=== PATIENT | female | born 1970 | race African-American/Black ===

== ENCOUNTER 2017-01-09 12:35 | Emergency (ER) | payer BC ==
[~2017-01-09] VITALS: Ht 162.6 cm; Wt 99.8 kg
[~2017-01-09 12:35] MED LIST: ASPI-482 PO; ASPI1TAB2 PO; BIOT25005 PO; DOCU-27 PO; FERR-26 PO; GLIP5TAB10 PO; IBUP-1060 PO; LISI1TAB5 PO; LOVA20TA2 PO; METF10002 PO; OXYC-323 PO
[2017-01-09] MEDS ORDERED: IV NORMAL SALINE 1000ML BAG 1,000 ML IV ONE (13:45)
[2017-01-09] MEDS ORDERED: ONDANSETRON PF 4 MG/2 ML VIAL. IV ONE (13:45)
[2017-01-09 14:20] LABS: BARBITURATES NEG (NEG); BENZODIAZEPINES NEG (NEG); CANNABINOIDS NEG (NEG); COCAINE NEG (NEG); METHADONE NEG (NEG); OPIATES NEG (NEG); PHENCYCLIDINE NEG (NEG)
[2017-01-09 14:21] VITALS: BP 117/68
[2017-01-09 14:21] LABS: ETHANOL, URINE NEG (NEG)
--- NOTE | 2017-01-09 14:25 | PHYS DOC ---
Past Medical History Past Medical History: Diabetes-Type II, High Cholesterol, Hypertension Past Surgical History: , Tonsillectomy, Tubal ligation Alcohol Use: None Drug Use: None Adult General Chief Complaint Chief Complaint: HYPERGLYCEMIA HPI HPI 46-year-old female with type 2 diabetes presents with a several day history of nausea vomiting and low-grade fever body aches chills and generalized fatigue. Today she states she's noted that her blood sugar is been markedly elevated at close to 500. She took her Glucophage and glipizide this morning as directed however she vomited shortly after does not think any of her medication was absorbed.] Review of Systems Review of Systems Constitutional: Reports subjective fever and chills [] Eyes: Denies change in visual acuity, redness, or eye pain [] HENT: Denies nasal congestion or sore throat [] Respiratory: Denies cough or shortness of breath [] Cardiovascular: No additional information not addressed in HPI [] GI: Per history of present illness [] : Denies dysuria or hematuria [] Musculoskeletal: Denies back pain or joint pain [] Integument: Denies rash or skin lesions [] Neurologic: Denies headache, focal weakness or sensory changes [] Endocrine: Denies polyuria or polydipsia [] Current Medications Current Medications Current Medications Medications (Trade) Dose Ordered Sig/Iker Start Time Stop Time Status Last Admin Dose Admin Ondansetron HCl (Zofran) 4 mg 1X ONCE 01/09/17 13:45 01/09/17 13:46 DC 01/09/17 14:46 4 MG Sodium Chloride (Iv Sodium Chloride 0.9% 1000ml Bag) 1,000 ml @ 1,000 mls/hr 1X ONCE 01/09/17 13:45 01/09/17 14:44 DC 01/09/17 14:45 1,000 MLS/HR Allergies Allergies Allergies Coded Allergies Type Severity Reaction Last Updated Verified No Known Drug Allergies 09/17/16 No Physical Exam Physical Exam Constitutional: Well developed, well nourished, no acute distress, non-toxic appearance. [] HENT: Normocephalic, atraumatic, bilateral external ears normal, oropharynx moist, no oral exudates, nose normal. [] Eyes: PERRLA, EOMI, conjunctiva normal, no discharge. [] Neck: Normal range of motion, no tenderness, supple, no stridor. [] Cardiovascular:Heart rate regular rhythm, no murmur [] Lungs & Thorax: Bilateral breath sounds clear to auscultation [] Abdomen: Bowel sounds normal, soft, no tenderness, no masses, no pulsatile masses. [] Skin: Warm, dry, no erythema, no rash. [] Back: No tenderness, no CVA tenderness. [] Extremities: No tenderness, no cyanosis, no clubbing, ROM intact, no edema. [] Neurologic: Alert and oriented X 3, normal motor function, normal sensory function, no focal deficits noted. [] Psychologic: Affect normal, judgement normal, mood normal. [] Current Patient Data Vital Signs Vital Signs Date Time Temp Pulse Resp B/P Pulse Ox O2 Delivery O2 Flow Rate FiO2 01/09/17 13:21 98.4 91 17 131/78 97 Room Air 98.4 Lab Values Laboratory Tests Test 01/09/17 13:05 01/09/17 13:20 01/09/17 13:35 01/09/17 14:00 Urine Opiates Screen Neg (NEG) Urine Methadone Screen Neg (NEG) Urine Barbiturates Neg (NEG) Urine Phencyclidine Screen Neg (NEG) Urine Amphetamine/Methamphetamine Neg (NEG) Urine Benzodiazepines Screen Neg (NEG) Urine Cocaine Screen Neg (NEG) Urine Cannabinoids Screen Neg (NEG) Urine Ethyl Alcohol Neg (NEG) Glucose (Fingerstick) 323mg/dL (70-99) H POC Urine HCG, Qualitative Hcg negative (Negative) Influenza Type A Antigen Negative (NEGATIVE) Influenza Type B Antigen Negative (NEGATIVE) Test 01/09/17 14:30 White Blood Count 8.5x10^3/uL (4.0-11.0) Red Blood Count 5.01x10^6/uL (3.50-5.40) Hemoglobin 11.5g/dL (12.0-15.5) L Hematocrit 37.2% (36.0-47.0) Mean Corpuscular Volume 74fL (79-100) L Mean Corpuscular Hemoglobin 23pg (25-35) L Mean Corpuscular Hemoglobin Concent 31g/dL (31-37) Red Cell Distribution Width 18.2% (11.5-14.5) H Platelet Count 296x10^3/uL (140-400) Neutrophils (%) (Auto) 62% (31-73) Lymphocytes (%) (Auto) 30% (24-48) Monocytes (%) (Auto) 6% (0-9) Eosinophils (%) (Auto) 1% (0-3) Basophils (%) (Auto) 0% (0-3) Neutrophils # (Auto) 5.3x10^3uL (1.8-7.7) Lymphocytes # (Auto) 2.6x10^3/uL (1.0-4.8) Monocytes # (Auto) 0.5x10^3/uL (0.0-1.1) Eosinophils # (Auto) 0.1x10^3/uL (0.0-0.7) Basophils # (Auto) 0.0x10^3/uL (0.0-0.2) Sodium Level 135mmol/L (136-145) L Potassium Level 4.5mmol/L (3.5-5.1) Chloride Level 97mmol/L (98-107) L Carbon Dioxide Level 31mmol/L (21-32) Anion Gap 7 (6-14) Blood Urea Nitrogen 10mg/dL (7-20) Creatinine 0.9mg/dL (0.6-1.0) Estimated GFR (Cockcroft-Gault) 82.3 BUN/Creatinine Ratio 11 (6-20) Glucose Level 276mg/dL (70-99) H Calcium Level 9.5mg/dL (8.5-10.1) Total Bilirubin 0.2mg/dL (0.2-1.0) Aspartate Amino Transferase (AST) 69U/L (15-37) H Alanine Aminotransferase (ALT) 94U/L (14-59) H Alkaline Phosphatase 82U/L (46-116) Total Protein 8.0g/dL (6.4-8.2) Albumin 3.2g/dL (3.4-5.0) L Albumin/Globulin Ratio 0.7 (1.0-1.7) L Lipase 146U/L (73-393) Laboratory Tests 01/09/17 14:30 Laboratory Tests 01/09/17 14:30 EKG EKG [] Radiology/Procedures Radiology/Procedures [] Course & Med Decision Making Course & Med Decision Making Pertinent Labs and Imaging studies reviewed. (See chart for details) [ED course: Evaluation reveals a 46-year-old female with multiple medical problems presents with nausea and elevated blood sugar. She was not ketotic her blood sugar was 276 she was given IV fluids and Zofran for her nausea which did help alleviate her symptoms. She'll be discharged home with prescription for Zofran.] Dragon Disclaimer Dragon Disclaimer This electronic medical record was generated, in whole or in part, using a voice recognition dictation system. Departure Departure Impression: Primary Impression: Nausea Additional Impression: Hyperglycemia Disposition: HOME, SELF-CARE Condition: IMPROVED Referrals: NO PCP (PCP) Patient Instructions: Hyperglycemia, Nausea and Vomiting Additional Instructions: Thank you for allowing us to participate in your care today. Followup with your primary care physician in 3 days if your symptoms do not improve. Return to the emergency department you have any new or concerning findings. This should be evaluated by the primary care physician and any necessary consulting services for continued management within a few days after discharge. Return to emergency room if you have any new or concerning symptoms including but not limited to fever, chills, nausea, vomiting, intractable pain, any new rashes, chest pain, shortness of air, uncontrolled bleeding, difficulty breathing, and/or vision loss. You may have been prescribed medication that can change in your level of thinking and ability to operate machinery. These medications include hydrocodone and Ativan. Also, Benadryl has been known to do this as well. Be sure to check with your pharmacist and ask if the medications you've prescribed can affect your level of consciousness. I recommend not operating heavy machinery or driving while on medication such as these. Scripts Ondansetron Hcl (Zofran)4 Mg Tablet1 Tab PO Q8HRS PRN NAUSEA #20 TAB Prov:ROZ QUINTANA DO 01/09/17 Problem Qualifiers ROZ QUINTANA DO Jan 09, 2017 14:24
[2017-01-09 14:51] LABS: OBC FLU VALID
[2017-01-09 14:53] LABS: BASO % 0 % (0-3); EOS % 1 % (0-3); HEMATOCRIT 37.2 % (36.0-47.0); HEMOGLOBIN 11.5 g/dL (12.0-15.5); LYMPH # 2.6 x10^3/uL (1.0-4.8); LYMPH % 30 % (24-48); MEAN CORPUSCULAR HEMOGLOBIN 23 pg (25-35); MEAN CORPUSCULAR HGB CONC 31 g/dL (31-37); MEAN CORPUSCULAR VOLUME 74 fL (79-100); MONO % 6 % (0-9); NEUT % 62 % (31-73); PLATELET COUNT 296 x10^3/uL (140-400); RED BLOOD COUNT 5.01 x10^6/uL (3.50-5.40); RED CELL DISTRIBUTION WIDTH 18.2 % (11.5-14.5); WHITE BLOOD COUNT 8.5 x10^3/uL (4.0-11.0)
[2017-01-09 15:06] LABS: CALCIUM 9.5 mg/dL (8.5-10.1); CREATININE 0.9 mg/dL (0.6-1.0); GFR 82.3; POTASSIUM 4.5 mmol/L (3.5-5.1)
[2017-01-09 15:12] LABS: ALBUMIN 3.2 g/dL (3.4-5.0); ALBUMIN/GLOBULIN RATIO 0.7 (1.0-1.7); TOTAL BILIRUBIN 0.2 mg/dL (0.2-1.0)
[2017-01-09] MEDS ORDERED: ONDA4TAB7 PO (15:42)
== END 2017-01-09 15:58 | disposition home or self-care (01) ==
LOC: ER 12:35
DX: E11.65 Type 2 diabetes mellitus with hyperglycemia (principal); R11.2 Nausea with vomiting, unspecified; I10 Essential (primary) hypertension; E78.00 Pure hypercholesterolemia, unspecified; R50.9 Fever, unspecified; R53.83 Other fatigue; Z98.51 Tubal ligation status
CPT/HCPCS: 36415; 80053; 81025; 82947; 83690; 85027; 87804; 96361; 96374; 99284; G0481; J2405; J7030

== ENCOUNTER 2017-03-29 16:10 | Emergency (ER) | payer BC ==
[~2017-03-29] VITALS: Ht 162.6 cm; Wt 99.8 kg
[~2017-03-29 16:10] MED LIST changes: +METF-620 PO; -METF10002 PO; +ONDA4TAB7 PO
[2017-03-29 16:46] VITALS: BP 108/70
[2017-03-29] MEDS ORDERED: TRAM-29 PO (17:08)
[2017-03-29] MEDS ORDERED: CYCL10TA2 PO (17:08)
--- NOTE | 2017-03-29 17:09 | PHYS DOC ---
Past Medical History Past Medical History: Diabetes-Type II, High Cholesterol, Hypertension Additional Past Medical Histor: lumbar radiculopathy Past Surgical History: , Hysterectomy, Tonsillectomy, Tubal ligation Alcohol Use: None Drug Use: None Adult General Chief Complaint Chief Complaint: LOWER BACK PAIN OR INJURY [facility] HPI Patient is a 47 year old female presents to the emergency department with a history of right lower back pain since yesterday. Patient states she has a history of back pain in the past. She states her back has spasms. Denies numbness, tingling to the lower extremities. She denies trauma or injury to the back. Patient states she has been taking Tylenol without relief. Review of Systems Review of Systems Constitutional: Denies fever or chills [] Eyes: Denies change in visual acuity, redness, or eye pain [] HENT: Denies nasal congestion or sore throat [] Respiratory: Denies cough or shortness of breath [] Cardiovascular: No additional information not addressed in HPI [] GI: Denies abdominal pain, nausea, vomiting, bloody stools or diarrhea [] : Denies dysuria or hematuria [] Musculoskeletal: right lower back pain denies joint pain [] Integument: Denies rash or skin lesions [] Neurologic: Denies headache, focal weakness or sensory changes [] Allergies Allergies Allergies Coded Allergies Type Severity Reaction Last Updated Verified No Known Drug Allergies 09/17/16 No Physical Exam Physical Exam Constitutional: Well developed, well nourished, no acute distress, non-toxic appearance. [] HENT: Normocephalic, atraumatic, bilateral external ears normal, oropharynx moist, no oral exudates, nose normal. [] Eyes: PERRLA, EOMI, conjunctiva normal, no discharge. [] Neck: Normal range of motion, no tenderness, supple, no stridor. [] Cardiovascular:Heart rate regular rhythm, no murmur [] Lungs & Thorax: Bilateral breath sounds clear to auscultation [] Skin: Warm, dry, no erythema, no rash. [] Back: Right lower back tenderness, increase pain noted with right leg raises. Extremities: No tenderness, no cyanosis, no clubbing, ROM intact, no edema. Peripheral pulses 2+ cap refill brisk less than 2 seconds. Patient with good sensation noted to the lower extremities. Neurologic: Alert and oriented X 3, normal motor function, normal sensory function, no focal deficits noted. [] Psychologic: Affect normal, judgement normal, mood normal. [] Current Patient Data Vital Signs Vital Signs Date Time Temp Pulse Resp B/P Pulse Ox O2 Delivery O2 Flow Rate FiO2 03/29/17 16:46 98.1 83 16 100 Room Air 98.1 EKG EKG [] Radiology/Procedures Radiology/Procedures [] Course & Med Decision Making Course & Med Decision Making Pertinent Labs and Imaging studies reviewed. (See chart for details) Patient will be provided with Flexeril for muscle spasms. She was instructed that these medications will cause drowsiness do not take any be alert and oriented. She'll also be provided with tramadol for severe pain and discomfort She was instructed this may cause drowsiness as well. She was encouraged to use ibuprofen 800 mg every 8 hours with food stop taking few develop an upset stomach. She'll be provided with a physician to follow up within the next 5-7 days. Signs and symptoms to return back to the emergency department as been provided. Patient agrees with discharge instructions treatment regimens and follow-up recommendations. [] Dragon Disclaimer Dragon Disclaimer This electronic medical record was generated, in whole or in part, using a voice recognition dictation system. Departure Departure Impression: Primary Impression: Back pain Disposition: 01 HOME, SELF-CARE Condition: STABLE Referrals: UNKNOWN PCP NAME (PCP) KOURTNEY SIMON MD Patient Instructions: Back Pain, Adult, [id number] Additional Instructions: Activity as tolerated. Ibuprofen 800 mg every 8 hours with food. Stop taking few develop an upset stomach. Flexeril for muscle spasms this medication will cause drowsiness do not take any be alert and oriented. Tramadol for severe pain and discomfort.Medication will also cause drowsiness don't take any be alert and oriented. Ice packs on 20 minutes off 20 minutes several times a day. Follow-up with the physician provided for you in the next 5-7 days. Return to emergency department for signs and symptoms of become worse. Scripts Tramadol Hcl (Ultram)50 Mg Tablet1 Tab PO Q6HRS #15 TAB Prov:KRISTEL LANZA APRN 03/29/17 Cyclobenzaprine Hcl 10 Mg [id number] Mg PO TID PRN MUSCLE SPASMS #30 TAB Prov:KRISTEL LANZA APRN 03/29/17 KRISTEL LANZA APRN March 29, 2017 17:09
== END 2017-03-29 17:15 | disposition home or self-care (01) ==
LOC: ER 16:10
DX: M54.5 Low back pain (principal); I10 Essential (primary) hypertension; E78.00 Pure hypercholesterolemia, unspecified; E11.9 Type 2 diabetes mellitus without complications
CPT/HCPCS: 99283